=== PATIENT | female | born 1975 | race Caucasian/White ===

== ENCOUNTER 2019-05-06 02:52 | Emergency (ER) | payer BC ==
[~2019-05-06] VITALS: Ht 157.5 cm; Wt 99.8 kg
[~2019-05-06 02:52] MED LIST: OXYCODONE HCL 55 MG PO
[2019-05-06 04:20] LABS: URINE BILIRUBIN NEGATIVE (Negative); URINE BLOOD 1+ (Negative); URINE CLARITY CLEAR; URINE COLOR YELLOW; URINE GLUCOSE-RANDOM NEGATIVE (Negative); URINE KETONES NEGATIVE (Negative); URINE LEUKOCYTES-REFLEX NEGATIVE (Negative); URINE NITRITE-REFLEX NEGATIVE (Negative); URINE PROTEIN NEGATIVE (Negative); URINE SPECIFIC GRAVITY >= 1.030 (1.005-1.030); URINE UROBILINOGEN 0.2 E.U./dl (0.2-1.0)
[2019-05-06 04:47] LABS: CASTS None Seen /LPF (None Seen); SQUAMOUS 4-10 Moderate /LPF (0-3); URINE WBC-REFLEX 0-5 Rare /HPF (0-5)
[2019-05-06 04:48] LABS: BACTERIA-REFLEX 1-9 Few /HPF (None Seen); CALCIUM OXALATE 4-10 Moderate /LPF (None Seen); URINE RBC 3-10 Few /HPF (0-2)
[2019-05-06] MEDS ORDERED: HYDROCODON-ACE1 EAC8 PO (06:41)
[2019-05-06] MEDS ORDERED: FLEXERIL PO (06:41)
[2019-05-06 06:49] VITALS: BP 116/65
== END 2019-05-06 06:51 | disposition home or self-care (01) ==
LOC: M.ERS 02:52
PROVIDERS: Emergency Medicine
DX: M51.36 Other intervertebral disc degeneration, lumbar region (principal); E03.9 Hypothyroidism, unspecified; Z86.2 Personal history of diseases of the blood and blood-forming organs and certain disorders involving the immune mechanism

== ENCOUNTER → 2020-03-01 | Outpatient (CLI) | payer BC ==
[~2020-03-01] MED LIST changes: +FLEXERIL PO; +HYDROCODON-ACE1 EAC8 PO
== END ==
LOC: M.RAD 10:52
PROVIDERS: ATTEND Internal Medicine
DX: M77.31 Calcaneal spur, right foot (principal); M79.89 Other specified soft tissue disorders

== ENCOUNTER → 2020-03-11 | Outpatient (CLI) | payer BC | LOC: M.LAB 12:13 | PROVIDERS: ATTEND Registered Nurse Diabetes Educator | DX: M47.814 Spondylosis without myelopathy or radiculopathy, thoracic region (principal); M54.2 Cervicalgia; R13.10 Dysphagia, unspecified; M25.78 Osteophyte, vertebrae; M43.8X4 Other specified deforming dorsopathies, thoracic region ==

== ENCOUNTER → 2021-10-03 | Outpatient (CLI) | payer BC | LOC: M.RAD 09:13 | PROVIDERS: ATTEND Registered Nurse Diabetes Educator | DX: Z12.31 Encounter for screening mammogram for malignant neoplasm of breast (principal); M47.22 Other spondylosis with radiculopathy, cervical region; N64.89 Other specified disorders of breast ==